=== PATIENT | female | born 1950 | race Caucasian/White ===

== ENCOUNTER 2016-07-07 07:41 | Inpatient (IN) | payer MEDICARE, OTHER ==
[~2016-07-07 07:41] MED LIST: ADULT LOW DOSE81 M1 PO; ADULT LOW DOSE81 MG PO; AMBIEN10 MG; AMBIEN10 MG PO; ATORVASTATIN CA20 M1 PO; ATORVASTATIN CA80 MG PO; AUGMENTIN 875-1 EAC1 PO; BROVANA15 MCG/22 AERO NEB; BUDESONIDE0.5 MG/21 INH; BYSTOLIC5 M1 PO; CEFAZOLIN2000 MG/50 IV; CELEBREX200 M1 PO; CPAP; CUBICIN500 MG/10 IV; CULTURELLE1 EAC1 PO; CYMBALTA30 MG; CYMBALTA60 M1 PO; CYMBALTA60 MG PO; FEOSOL325 M1 PO; FIBER 61 TAB; FUROSEMIDE20 M1 PO; FUROSEMIDE40 M1 PO; FUROSEMIDE40 M2 PO; FUROSEMIDE80 M2 PO; GABAPENTIN600 M1 PO; GABAPENTIN600 M2 PO; GLUCAGON EME1 MG/KIT IM; GLUCOPHAGE1000 M1 PO; GLUCOPHAGE1000 MG PO; GLYBURID-METFOR1 T; GLYBURID-METFOR1 T PO; H PO; HUMALOG100 U/ML SQ; IPRAT-ALBUT 0.5-3 ML; K-DUR10 MEQ PO; LANTUS100 U/ML SC; LANTUS100 UNITS/ SC; LEVAQUIN750 M1 PO; LEXAPRO20 M2 PO; LEXAPRO20 MG PO; LISINOPRIL5 M1 PO; LOPRE25 PO; LORAZEPAM1 M1 PO; LYRICA200 MG PO; LYRICA25 MG; MELOXICAM7.5 MG PO; MIRALAX17 G2 PO; MOBIC7.5 MG; MUCINEX1200 MG PO; MUCINEX600 MG PO; MULTI VITAMIN1 EAC2 PO; MULTIVITAMIN1 TAB; ONGLYZA5 MG PO; OXYCODON-ACETA1 EAC4 PO; OXYCODONE-ACET1 EAC3 PO; OXYGEN; PERCOCET 5-3251 EACH PO; PREDNISONE10 M1 PO; PROTONIX40 M2 PO; PROZAC WEEKLY90 MG; SOTALOL80 M1 PO; SPIRIVA18 MC1 INH; SPIRONOLACTONE25 M1 PO; SYMBICORT 160-1 PUFF INH; TAMIFLU75 MG/CAP PO; VENTOLIN HFA18 G2 INH; VENTOLIN HFA18 GM INH; XARELTO20 M1 PO
[2016-07-07] MEDS ORDERED: ASPIRIN81 M1 PO (07:59)
[2016-07-07] MEDS ORDERED: BYSTOLIC10 M1 PO (07:59)
[2016-07-07] MEDS ORDERED: LIPITOR20 M1 PO (07:59)
[2016-07-07] MEDS ORDERED: CULTURELLE1 EAC1 PO (08:00)
[2016-07-07] MEDS ORDERED: COLACE100 M1 PO (08:00)
[2016-07-07] MEDS ORDERED: CELEBREX200 M1 PO (08:00)
[2016-07-07] MEDS ORDERED: NEURONTIN600 M1 PO (08:01)
[2016-07-07] MEDS ORDERED: LEXAPRO20 M2 PO (08:01)
[2016-07-07] MEDS ORDERED: CYMBALTA60 M1 PO (08:01)
[2016-07-07] MEDS ORDERED: LANTUS100 UNITS/ SC (08:01)
[2016-07-07] MEDS ORDERED: LASIX80 M1 PO (08:01)
[2016-07-07] MEDS ORDERED: MULTIVITAMINS1 EAC6 PO (08:02)
[2016-07-07] MEDS ORDERED: MIRALAX17 G2 PO (08:02)
[2016-07-07] MEDS ORDERED: PRINIVIL5 M1 PO (08:02)
[2016-07-07] MEDS ORDERED: ATIVAN1 M2 PO (08:03)
[2016-07-07] MEDS ORDERED: MUCINEX600 M1 PO (08:03)
[2016-07-07] MEDS ORDERED: SPIRIVA18 MC1 INH (08:03)
[2016-07-07] MEDS ORDERED: PROTONIX40 M2 PO (08:03)
[2016-07-07] MEDS ORDERED: GLUCOPHAGE1000 M1 PO (08:04)
[2016-07-07] MEDS ORDERED: VENTOLIN HFA18 G2 INH (08:05)
[2016-07-07] MEDS ORDERED: OXYCODONE-ACET1 EAC4 PO (08:05)
[2016-07-07] MEDS ORDERED: SYMBICORT 160-1 PUFF INH (09:52)
[2016-07-07] MEDS ORDERED: SOTALOL80 M1 PO (10:08)
[2016-07-07 11:46] LABS: ARTERIAL BLD GAS O2 SATURATION 93 % (95-98); ARTERIAL PO2 70 mmHg (70-100); BICARBONATE 40 mmol/L (21-28); BLOOD GAS BASE EXCESS 11 mM/L (-/+3); PH 7.28 Units (7.35-7.45)
[2016-07-07 11:48] LABS: ABG CO2 ARTERIAL 42 mmol/L (21-27); ARTERIAL BLOOD GAS PCO2 88 mmHg (32-45)
[2016-07-07 12:52] LABS: INR 1.3 INR (0.9-1.1); PROTHROMBIN TIME 15.3 SECONDS (9.0-13.6)
[2016-07-07 13:30] LABS: ARTERIAL BLD GAS O2 SATURATION 93 % (95-98); ARTERIAL PO2 67 mmHg (70-100); BICARBONATE 40 mmol/L (21-28); BLOOD GAS BASE EXCESS 13 mM/L (-/+3); PH 7.34 Units (7.35-7.45)
[2016-07-07 13:35] LABS: ABG CO2 ARTERIAL 43 mmol/L (21-27)
[2016-07-07 13:36] LABS: ARTERIAL BLOOD GAS PCO2 77 mmHg (32-45)
[2016-07-07 15:04] LABS: ARTERIAL BLD GAS O2 SATURATION 96 % (95-98); BICARBONATE 39 mmol/L (21-28); BLOOD GAS BASE EXCESS 11 mM/L (-/+3); PH 7.33 Units (7.35-7.45)
[2016-07-07 15:07] LABS: ABG CO2 ARTERIAL 41 mmol/L (21-27); ARTERIAL BLOOD GAS PCO2 76 mmHg (32-45); ARTERIAL PO2 82 mmHg (70-100)
[2016-07-07 15:16] LABS: CREATININE 0.49 mg/dl (0.50-1.10); eGFR VALUE FOR BLACK >90 mL/Min
[2016-07-07 18:06] LABS: PROCALCITONIN 3.11 ng/ml (0.05-0.09)
[2016-07-08 04:55] LABS: BASO % 0.1 % (0-2); HCT-HEMATOCRIT 27.8 % (34.0-49.0); HGB-HEMOGLOBIN 8.1 gm/dl (12.0-15.5); IMMATURE GRANULOCYTES ABSOLUTE 0.05 tho/cmm (0-0.03); IMMATURE GRANULOCYTES PERCENT 0.3 % (0-0.3); LYMPH % 4.1 % (20-45); LYMPH ABSOLUTE COUNT 0.8 tho/cmm (0.8-4.5); MCH (MEAN CORPUSCULAR HGB) 28.2 pg (28.0-32.0); MCHC MEAN CORPUSCULAR HGB CONC 29.1 % (32.0-36.0); MCV (MEAN CELL VOLUME) 96.9 fl (82.0-96.0); MEAN PLATELET VOLUME 10.8 cmc (9.4-12.4); MONO % 2.6 % (0-12); MONOCYTE ABSOLUTE COUNT 0.5 tho/cmm (0.0-1.2); NEUTROPHIL ABSOLUTE COUNT 17.1 tho/cmm (1.6-8.0); NEUTROPHIL-AUTOMATED 17.1 tho/cmm (1.6-8.0); NEUTROPHILS % 92.9 % (40-80); PLATELET COUNT 192 tho/cmm (150-450); RED BLOOD COUNT 2.87 mil/cmm (4.00-5.20); RED CELL DISTRIBUTION WIDTH 15.4 % (12.4-16.4); WHITE BLOOD COUNT 18.4 tho/cmm (4.0-10.0)
[2016-07-08 05:08] LABS: ALB/GLOB RATIO 0.5 (0.8-2.0); ALBUMIN 2.3 g/dl (3.5-5.0); ALKALINE PHOSPHATASE 97 U/L (33-138); ALT/SGPT 71 U/L (12-78); ANION GAP 7 mmol/L (0-20); AST/SGOT 34 U/L (10-40); BILIRUBIN,DIRECT 0.1 mg/dl (0.0-0.3); BILIRUBIN,INDIRECT 0.2 mg/dL (0.0-1.0); BILIRUBIN,TOTAL 0.3 mg/dl (0-1.5); BLOOD UREA NITROGEN 8 mg/dl (6-24); CALCIUM 8.6 mg/dl (8.5-10.5); CARBON DIOXIDE-VENOUS 38 mmol/L (22-32); CHLORIDE 100 mmol/l (96-110); CREATININE 0.43 mg/dl (0.50-1.10); GLUCOSE 122 mg/dL (70-110); SODIUM 141 mmol/L (135-145); eGFR VALUE FOR BLACK >90 mL/Min
--- NOTE | 2016-07-08 18:01 | NUR ---
AGREE WITH STUDENT CHARTING 07/08
[2016-07-09 04:14] LABS: BASO % 0.1 % (0-2); HCT-HEMATOCRIT 27.9 % (34.0-49.0); HGB-HEMOGLOBIN 8.2 gm/dl (12.0-15.5); IMMATURE GRANULOCYTES ABSOLUTE 0.06 tho/cmm (0-0.03); IMMATURE GRANULOCYTES PERCENT 0.4 % (0-0.3); LYMPH % 5.9 % (20-45); LYMPH ABSOLUTE COUNT 0.9 tho/cmm (0.8-4.5); MCH (MEAN CORPUSCULAR HGB) 28.1 pg (28.0-32.0); MCHC MEAN CORPUSCULAR HGB CONC 29.4 % (32.0-36.0); MCV (MEAN CELL VOLUME) 95.5 fl (82.0-96.0); MEAN PLATELET VOLUME 10.5 cmc (9.4-12.4); MONO % 5.1 % (0-12); MONOCYTE ABSOLUTE COUNT 0.8 tho/cmm (0.0-1.2); NEUTROPHIL ABSOLUTE COUNT 13.7 tho/cmm (1.6-8.0); NEUTROPHIL-AUTOMATED 13.7 tho/cmm (1.6-8.0); NEUTROPHILS % 88.5 % (40-80); PLATELET COUNT 210 tho/cmm (150-450); RED BLOOD COUNT 2.92 mil/cmm (4.00-5.20); RED CELL DISTRIBUTION WIDTH 15.1 % (12.4-16.4); WHITE BLOOD COUNT 15.5 tho/cmm (4.0-10.0)
[2016-07-09 04:22] LABS: ANION GAP 6 mmol/L (0-20); BLOOD UREA NITROGEN 11 mg/dl (6-24); CALCIUM 8.9 mg/dl (8.5-10.5); CARBON DIOXIDE-VENOUS 39 mmol/L (22-32); CHLORIDE 99 mmol/l (96-110); CREATININE 0.44 mg/dl (0.50-1.10); GLUCOSE 132 mg/dL (70-110); POTASSIUM 3.9 mmol/L (3.7-5.1); SODIUM 140 mmol/L (135-145); eGFR VALUE FOR BLACK >90 mL/Min
[2016-07-10 04:20] LABS: BASO % 0.1 % (0-2); HCT-HEMATOCRIT 28.7 % (34.0-49.0); HGB-HEMOGLOBIN 8.4 gm/dl (12.0-15.5); IMMATURE GRANULOCYTES ABSOLUTE 0.05 tho/cmm (0-0.03); IMMATURE GRANULOCYTES PERCENT 0.5 % (0-0.3); LYMPH % 9.8 % (20-45); LYMPH ABSOLUTE COUNT 1.1 tho/cmm (0.8-4.5); MCH (MEAN CORPUSCULAR HGB) 27.6 pg (28.0-32.0); MCHC MEAN CORPUSCULAR HGB CONC 29.3 % (32.0-36.0); MCV (MEAN CELL VOLUME) 94.4 fl (82.0-96.0); MEAN PLATELET VOLUME 10.2 cmc (9.4-12.4); MONO % 6.4 % (0-12); MONOCYTE ABSOLUTE COUNT 0.7 tho/cmm (0.0-1.2); NEUTROPHILS % 83.2 % (40-80); PLATELET COUNT 222 tho/cmm (150-450); RED BLOOD COUNT 3.04 mil/cmm (4.00-5.20); RED CELL DISTRIBUTION WIDTH 14.9 % (12.4-16.4); WHITE BLOOD COUNT 10.8 tho/cmm (4.0-10.0)
[2016-07-10 04:38] LABS: ANION GAP 7 mmol/L (0-20); BLOOD UREA NITROGEN 13 mg/dl (6-24); CALCIUM 8.8 mg/dl (8.5-10.5); CARBON DIOXIDE-VENOUS 39 mmol/L (22-32); CHLORIDE 98 mmol/l (96-110); CREATININE 0.47 mg/dl (0.50-1.10); GLUCOSE 175 mg/dL (70-110); POTASSIUM 3.8 mmol/L (3.7-5.1); SODIUM 140 mmol/L (135-145); eGFR VALUE FOR BLACK >90 mL/Min
[2016-07-10 05:34] LABS: ARTERIAL BLD GAS O2 SATURATION 98 % (95-98); ARTERIAL BLOOD GAS PCO2 66 mmHg (32-45); ARTERIAL PO2 109 mmHg (70-100); BICARBONATE 39 mmol/L (21-28); BLOOD GAS BASE EXCESS 12 mM/L (-/+3); PH 7.38 Units (7.35-7.45)
[2016-07-10 05:37] LABS: ABG CO2 ARTERIAL 41 mmol/L (21-27)
[2016-07-12 03:17] LABS: BASO % 0.1 % (0-2); HCT-HEMATOCRIT 31.2 % (34.0-49.0); HGB-HEMOGLOBIN 9.5 gm/dl (12.0-15.5); IMMATURE GRANULOCYTES ABSOLUTE 0.12 tho/cmm (0-0.03); IMMATURE GRANULOCYTES PERCENT 1.2 % (0-0.3); LYMPH % 11.4 % (20-45); LYMPH ABSOLUTE COUNT 1.2 tho/cmm (0.8-4.5); MCH (MEAN CORPUSCULAR HGB) 28.1 pg (28.0-32.0); MCHC MEAN CORPUSCULAR HGB CONC 30.4 % (32.0-36.0); MCV (MEAN CELL VOLUME) 92.3 fl (82.0-96.0); MEAN PLATELET VOLUME 10.1 cmc (9.4-12.4); MONO % 6.6 % (0-12); MONOCYTE ABSOLUTE COUNT 0.7 tho/cmm (0.0-1.2); NEUTROPHIL ABSOLUTE COUNT 8.4 tho/cmm (1.6-8.0); NEUTROPHIL-AUTOMATED 8.4 tho/cmm (1.6-8.0); NEUTROPHILS % 80.7 % (40-80); PLATELET COUNT 231 tho/cmm (150-450); RED BLOOD COUNT 3.38 mil/cmm (4.00-5.20); RED CELL DISTRIBUTION WIDTH 14.7 % (12.4-16.4); WHITE BLOOD COUNT 10.4 tho/cmm (4.0-10.0)
[2016-07-12 03:28] LABS: ANION GAP 7 mmol/L (0-20); BLOOD UREA NITROGEN 11 mg/dl (6-24); CALCIUM 8.7 mg/dl (8.5-10.5); CARBON DIOXIDE-VENOUS 38 mmol/L (22-32); CHLORIDE 99 mmol/l (96-110); CREATININE 0.46 mg/dl (0.50-1.10); GLUCOSE 168 mg/dL (70-110); MAGNESIUM 2.2 mg/dl (1.8-2.6); POTASSIUM 3.8 mmol/L (3.7-5.1); SODIUM 140 mmol/L (135-145); eGFR VALUE FOR BLACK >90 mL/Min
[2016-07-13 05:11] LABS: BASO % 0.2 % (0-2); EOS % 0.3 % (0-7); HCT-HEMATOCRIT 34.5 % (34.0-49.0); HGB-HEMOGLOBIN 10.3 gm/dl (12.0-15.5); IMMATURE GRANULOCYTES ABSOLUTE 0.13 tho/cmm (0-0.03); LYMPH % 15.6 % (20-45); LYMPH ABSOLUTE COUNT 2.1 tho/cmm (0.8-4.5); MCH (MEAN CORPUSCULAR HGB) 27.6 pg (28.0-32.0); MCHC MEAN CORPUSCULAR HGB CONC 29.9 % (32.0-36.0); MCV (MEAN CELL VOLUME) 92.5 fl (82.0-96.0); MEAN PLATELET VOLUME 10.2 cmc (9.4-12.4); MONO % 10.2 % (0-12); MONOCYTE ABSOLUTE COUNT 1.4 tho/cmm (0.0-1.2); NEUTROPHIL ABSOLUTE COUNT 9.6 tho/cmm (1.6-8.0); NEUTROPHIL-AUTOMATED 9.6 tho/cmm (1.6-8.0); NEUTROPHILS % 72.7 % (40-80); PLATELET COUNT 269 tho/cmm (150-450); RED BLOOD COUNT 3.73 mil/cmm (4.00-5.20); WHITE BLOOD COUNT 13.2 tho/cmm (4.0-10.0)
[2016-07-13 05:13] LABS: ANION GAP 8 mmol/L (0-20); BLOOD UREA NITROGEN 10 mg/dl (6-24); CALCIUM 8.6 mg/dl (8.5-10.5); CARBON DIOXIDE-VENOUS 37 mmol/L (22-32); CHLORIDE 101 mmol/l (96-110); CREATININE 0.41 mg/dl (0.50-1.10); GLUCOSE 95 mg/dL (70-110); MAGNESIUM 2.4 mg/dl (1.8-2.6); POTASSIUM 4.3 mmol/L (3.7-5.1); SODIUM 142 mmol/L (135-145); eGFR VALUE FOR BLACK >90 mL/Min
[2016-07-13] MEDS ORDERED: LEVAQUIN750 M1 PO (13:12)
[2016-07-13] MEDS ORDERED: ULTRAM50 M1 PO (13:30)
[2016-07-13] MEDS ORDERED: TYLENOL325 M2 PO (13:31)
[2016-07-13] MEDS ORDERED: BISCOLAX10 MG PR (13:38)
[2016-07-13] MEDS ORDERED: PREDNISONE10 M1 PO (13:42)
[2016-07-13] MEDS ORDERED: NOVOLOG100 UNITS/ SC (13:43)
[2016-07-13] MEDS ORDERED: GLUCAGON HCL1 MG IM (13:44)
[2016-07-13] MEDS ORDERED: LIDODERM1 EACH TP (13:45)
== END 2016-07-13 14:30 | DRG 190 ==
LOC: PCUA 07:41
PROVIDERS: Internal Medicine; Internal Medicine Cardiovascular Disease; Internal Medicine Pulmonary Disease; Physician Assistant; ADMIT Hospitalist
PROC: 02HV33Z Insertion of Infusion Device into Superior Vena Cava, Percutaneous Approach (ICD-10-PCS; principal; 2016-07-07)
PROC: 5A09357 Assistance with Respiratory Ventilation, Less than 24 Consecutive Hours, Continuous Positive Airway Pressure (ICD-10-PCS; 2016-07-07)
DX: J44.0 Chronic obstructive pulmonary disease with (acute) lower respiratory infection (principal); J69.0 Pneumonitis due to inhalation of food and vomit; J96.21 Acute and chronic respiratory failure with hypoxia; G92 Toxic encephalopathy; Z99.81 Dependence on supplemental oxygen; E11.9 Type 2 diabetes mellitus without complications; D64.9 Anemia, unspecified; J96.22 Acute and chronic respiratory failure with hypercapnia; Y95 Nosocomial condition; J44.1 Chronic obstructive pulmonary disease with (acute) exacerbation; I48.0 Paroxysmal atrial fibrillation; K22.4 Dyskinesia of esophagus; I25.10 Atherosclerotic heart disease of native coronary artery without angina pectoris; Z95.1 Presence of aortocoronary bypass graft; Z86.73 Personal history of transient ischemic attack (TIA), and cerebral infarction without residual deficits; T40.605A Adverse effect of unspecified narcotics, initial encounter; E78.5 Hyperlipidemia, unspecified; G47.33 Obstructive sleep apnea (adult) (pediatric); Z79.4 Long term (current) use of insulin; Z79.82 Long term (current) use of aspirin; F50.89 Other specified eating disorder; Z68.34 Body mass index [BMI] 34.0-34.9, adult; I73.9 Peripheral vascular disease, unspecified; Z87.891 Personal history of nicotine dependence; R19.7 Diarrhea, unspecified; Z53.9 Procedure and treatment not carried out, unspecified reason
CPT/HCPCS: C1751; G8997-GN-CI; G8997-GN-CK; G8998-GN-CI; J1815; J1940; J1956; J2270; J2405; J2543; J2920; J3370; J7030; J7512; Q9967

== ENCOUNTER 2016-07-31 18:35 | Inpatient (IN) | payer MEDICARE, OTHER ==
[~2016-07-31 18:35] MED LIST changes: +ASPIRIN81 M1 PO; +ATIVAN1 M2 PO; +BISCOLAX10 MG PR; +BYSTOLIC10 M1 PO; +COLACE100 M1 PO; +GLUCAGON HCL1 MG IM; +LASIX80 M1 PO; +LIDODERM1 EACH TP; +LIPITOR20 M1 PO; +MUCINEX600 M1 PO; +MULTIVITAMINS1 EAC6 PO; +NEURONTIN600 M1 PO; +NOVOLOG100 UNITS/ SC; +OXYCODONE-ACET1 EAC4 PO; +PRINIVIL5 M1 PO; +TYLENOL325 M2 PO; +ULTRAM50 M1 PO
[2016-07-31] MEDS ORDERED: DURAGESIC1 EAC5 TOP (20:00)
[2016-07-31] MEDS ORDERED: NYSTATIN100000 UNI PO (20:02)
[2016-07-31] MEDS ORDERED: MILK OF MAGNESIA PO (20:03)
[2016-07-31 22:58] LABS: ARTERIAL BLD GAS O2 SATURATION 96 % (95-98); ARTERIAL PO2 88 mmHg (70-100); BICARBONATE 38 mmol/L (21-28); BLOOD GAS BASE EXCESS 10 mM/L (-/+3); PH 7.29 Units (7.35-7.45)
[2016-07-31 23:04] LABS: ABG CO2 ARTERIAL 41 mmol/L (21-27); ARTERIAL BLOOD GAS PCO2 83 mmHg (32-45)
[2016-08-01 01:08] LABS: ARTERIAL BLD GAS O2 SATURATION 98 % (95-98); ARTERIAL PO2 117 mmHg (70-100); BICARBONATE 39 mmol/L (21-28); BLOOD GAS BASE EXCESS 11 mM/L (-/+3)
[2016-08-01 01:12] LABS: ABG CO2 ARTERIAL 42 mmol/L (21-27); ARTERIAL BLOOD GAS PCO2 83 mmHg (32-45)
[2016-08-01 02:38] LABS: BICARBONATE 40 mmol/L (21-28); BLOOD GAS BASE EXCESS 12 mM/L (-/+3); PH 7.34 Units (7.35-7.45)
[2016-08-01 02:46] LABS: ARTERIAL BLD GAS O2 SATURATION 84 % (95-98)
[2016-08-01 04:03] LABS: ARTERIAL BLOOD GAS PCO2 75 mmHg (32-45)
[2016-08-01 04:04] LABS: ABG CO2 ARTERIAL 42 mmol/L (21-27); ARTERIAL PO2 50 mmHg (70-100)
[2016-08-01 05:57] LABS: BASO % 0.2 % (0-2); EOS % 3.1 % (0-7); EOSINOPHIL ABSOLUTE COUNT 0.3 tho/cmm (0.0-0.7); HCT-HEMATOCRIT 33.3 % (34.0-49.0); HGB-HEMOGLOBIN 9.5 gm/dl (12.0-15.5); IMMATURE GRANULOCYTES ABSOLUTE 0.01 tho/cmm (0-0.03); IMMATURE GRANULOCYTES PERCENT 0.1 % (0-0.3); LYMPH % 28.7 % (20-45); LYMPH ABSOLUTE COUNT 2.3 tho/cmm (0.8-4.5); MCH (MEAN CORPUSCULAR HGB) 27.4 pg (28.0-32.0); MEAN PLATELET VOLUME 10.3 cmc (9.4-12.4); MONO % 9.8 % (0-12); MONOCYTE ABSOLUTE COUNT 0.8 tho/cmm (0.0-1.2); NEUTROPHIL ABSOLUTE COUNT 4.7 tho/cmm (1.6-8.0); NEUTROPHIL-AUTOMATED 4.7 tho/cmm (1.6-8.0); NEUTROPHILS % 58.1 % (40-80); PLATELET COUNT 145 tho/cmm (150-450); RED BLOOD COUNT 3.47 mil/cmm (4.00-5.20)
[2016-08-01 06:00] LABS: MCHC MEAN CORPUSCULAR HGB CONC 28.5 % (32.0-36.0)
[2016-08-01 06:11] LABS: ANION GAP 10 mmol/L (0-20); BLOOD UREA NITROGEN 15 mg/dl (6-24); CARBON DIOXIDE-VENOUS 38 mmol/L (22-32); CHLORIDE 98 mmol/l (96-110); CREATININE 0.51 mg/dl (0.50-1.10); GLUCOSE 148 mg/dL (70-110); POTASSIUM 4.7 mmol/L (3.7-5.1); SODIUM 141 mmol/L (135-145); eGFR VALUE FOR BLACK >90 mL/Min
[2016-08-03] MEDS ORDERED: MIRALAX17 G2 PO (15:41)
== END 2016-08-03 17:00 | disposition home health service (06) | DRG 917 ==
LOC: PCUB 18:35
PROVIDERS: Internal Medicine; ADMIT Hospitalist
PROC: 5A09357 Assistance with Respiratory Ventilation, Less than 24 Consecutive Hours, Continuous Positive Airway Pressure (ICD-10-PCS; principal; 2016-08-01)
DX: T40.2X1A Poisoning by other opioids, accidental (unintentional), initial encounter (principal); J96.22 Acute and chronic respiratory failure with hypercapnia; J96.01 Acute respiratory failure with hypoxia; E11.40 Type 2 diabetes mellitus with diabetic neuropathy, unspecified; K22.4 Dyskinesia of esophagus; J44.9 Chronic obstructive pulmonary disease, unspecified; Z99.81 Dependence on supplemental oxygen; K21.9 Gastro-esophageal reflux disease without esophagitis; I25.10 Atherosclerotic heart disease of native coronary artery without angina pectoris; Z95.1 Presence of aortocoronary bypass graft; I73.9 Peripheral vascular disease, unspecified; E78.5 Hyperlipidemia, unspecified; I10 Essential (primary) hypertension; Z79.4 Long term (current) use of insulin; I48.0 Paroxysmal atrial fibrillation; F32.9 Major depressive disorder, single episode, unspecified; D64.9 Anemia, unspecified; Y92.013 Bedroom of single-family (private) house as the place of occurrence of the external cause; Z66 Do not resuscitate; F11.10 Opioid abuse, uncomplicated
CPT/HCPCS: G8987-GO-CJ; G8988-GO-CI; J1815; J7030